=== PATIENT | male | born 1970 | race Two or more races ===

== ENCOUNTER 2019-12-08 17:25 | Emergency (ER) | payer OTHER ==
[~2019-12-08] VITALS: Ht 180.3 cm; Wt 90.0 kg
[2019-12-08] MEDS ORDERED: acetaminophen 325mg tablet PO ONE (19:55)
[2019-12-08] MEDS ORDERED: ketorolac trometh inj. 60 MG/2 ML VIAL IM ONE (19:55)
[2019-12-08 20:17] VITALS: BP 138/88
== END 2019-12-08 20:18 | disposition home or self-care (01) ==
LOC: ER 17:26
DX: K46.9 Unspecified abdominal hernia without obstruction or gangrene (principal)
CPT/HCPCS: 96372; 99283; J1885

== ENCOUNTER 2021-01-23 16:03 | Emergency (ER) | payer BC, OTHER ==
[~2021-01-23] VITALS: Ht 177.8 cm; Wt 100.0 kg
[2021-01-23] MEDS ORDERED: ibuprofen 200mg tablet PO ONE (20:55)
[2021-01-23] MEDS ORDERED: HYDROcodone/acetaminophen 10/325mg tab PO ONE (20:55)
[2021-01-23 22:01] VITALS: BP 143/89
== END 2021-01-23 22:03 | disposition home or self-care (01) ==
LOC: ER 16:03
DX: S06.0X0A Concussion without loss of consciousness, initial encounter (principal); Z95.0 Presence of cardiac pacemaker; W22.8XXA Striking against or struck by other objects, initial encounter; Y93.89 Activity, other specified; Y92.89 Other specified places as the place of occurrence of the external cause; Y99.9 Unspecified external cause status
CPT/HCPCS: 72040; 99283

== ENCOUNTER 2023-08-17 13:06 | Emergency (ER) | payer BC, OTHER ==
[~2023-08-17] VITALS: Ht 177.8 cm; Wt 82.0 kg
[2023-08-17 14:28] LABS: BASOPHILS # (AUTO) 0.1 X10'3 (0-0.2); BASOPHILS % (AUTO) 0.5 % (0-1); EOSINOPHILS # (AUTO) 0.1 X10'3 (0-0.9); EOSINOPHILS % (AUTO) 0.7 % (0-6); HEMATOCRIT 41.7 % (42.0-52.0); HEMOGLOBIN 13.9 g/dl (14.0-17.9); LYMPHOCYTES # (AUTO) 1.3 X10'3 (1.1-4.8); LYMPHOCYTES % (AUTO) 8.3 % (21-51); MEAN CORPUSCULAR HEMOGLOBIN 27.7 PG (27.0-31.0); MEAN CORPUSCULAR HGB CONC 33.3 g/dL (33.0-36.5); MEAN CORPUSCULAR VOLUME 83.2 FL (78-98); MEAN PLATELET VOLUME 9.7 FL (7.4-10.4); MONOCYTES # (AUTO) 1.3 X10'3 (0-0.9); MONOCYTES % (AUTO) 8.4 % (2-12); NEUTROPHILS % (AUTO) 82.1 % (42-75); PLATELET COUNT 185 X10'3 (140-440); RED BLOOD COUNT 5.01 X10'6 (4.70-6.10); WHITE BLOOD COUNT 15.9 X10'3 (4.5-11.0)
[2023-08-17 14:45] LABS: ALANINE AMINOTRANSFERASE 16 U/L (12-78); ALBUMIN 4.2 G/DL (3.4-5.0); ALBUMIN/GLOBULIN RATIO 1.2 (1.1-1.5); ALKALINE PHOSPHATASE 70 IU/L (46-116); ANION GAP 9 (8-16); ASPARTATE AMINO TRANSFERASE 10 U/L (10-37); BLOOD UREA NITROGEN 13 MG/DL (7-18); BUN/CREATININE RATIO 11.6 (10.0-20.0); CALCIUM 9.6 MG/DL (8.5-10.1); CHLORIDE 104 MMOL/L (99-107); CREATININE 1.12 MG/DL (0.60-1.10); GLUCOSE 129 MG/DL (70-104); LIPASE 24 U/L (16-77); POTASSIUM 4.1 MMOL/L (3.5-5.1); SODIUM 139 MMOL/L (135-145); TOTAL CARBON DIOXIDE 26.3 MMOL/L (24-32); TOTAL PROTEIN 7.6 G/DL (6.4-8.2); eCRCL 78 ML/MIN; eGFR 68 ML/MIN
[2023-08-17 15:35] LABS: CLARITY,URINE CLEAR (Clear); COLOR,URINE YELLOW (Yellow); GLUCOSE, URINE NEGATIVE (Neg); KETONES,URINE TRACE mg/dl (Neg); LEUKOCYTE ESTERASE ,URINE NEGATIVE (Neg); OCCULT BLOOD,URINE NEGATIVE (Neg); PROTEIN,URINE 30 mg/dl (Neg)
[2023-08-17 15:40] LABS: UA COLLECTION TYPE CLN CATCH MIDSTREAM
[2023-08-17] MEDS ORDERED: normal saline 1000ml 1,000 ML IV ONE (15:40)
[2023-08-17] MEDS ORDERED: iohexol 300mg/ml 100ml inj. ONE (15:40)
[2023-08-17 15:43] LABS: BILIRUBIN,URINE NEGATIVE (Neg); NITRITES, URINE NEGATIVE (Neg); WBC,URINE 0-4 /HPF (0-4)
[2023-08-17 15:44] LABS: BACTERIA,URINE NONE SEEN /HPF (Neg); MUCUS STRANDS MODERATE /LPF (Neg); RBC,URINE NONE SEEN /HPF (0-2); SQUAMOUS EPITHELIAL CELL,UR FEW /LPF (FEW)
[2023-08-17 16:12] VITALS: TEMP 99
[2023-08-17] MEDS ORDERED: piperacillin/tazo 4.5gm/100ml 100 ML IV ONE ×2 (17:45→18:00)
[2023-08-17] MEDS ORDERED: AMOX-580 PO (17:55)
[2023-08-17 19:20] VITALS: BP 94/65; PULSE 77; RESP 18; O2SAT 97
== END 2023-08-17 21:34 | disposition home or self-care (01) ==
LOC: ER 13:06
DX: K57.92 Diverticulitis of intestine, part unspecified, without perforation or abscess without bleeding (principal); R68.83 Chills (without fever); Z95.0 Presence of cardiac pacemaker; Z98.890 Other specified postprocedural states
CPT/HCPCS: 36415; 74177; 80053; 81001; 83690; 85025; 96365; 96366; 99285; J2543; J3490; J7030; Q9967; 96375

== ENCOUNTER 2024-02-09 18:53 | Emergency (ER) | payer BC, OTHER ==
[~2024-02-09] VITALS: Ht 177.8 cm; Wt 80.0 kg
[2024-02-09 18:56] VITALS: BP 132/86; PULSE 64; TEMP 98.6; O2SAT 98
[2024-02-09 20:52] LABS: BILIRUBIN,URINE NEGATIVE (Neg); CLARITY,URINE CLEAR (Clear); COLOR,URINE YELLOW (Yellow); GLUCOSE, URINE NEGATIVE (Neg); KETONES,URINE NEGATIVE (Neg); LEUKOCYTE ESTERASE ,URINE NEGATIVE (Neg); NITRITES, URINE NEGATIVE (Neg); OCCULT BLOOD,URINE NEGATIVE (Neg); PROTEIN,URINE NEGATIVE (Neg); UROBILINOGEN,URINE 0.2 E.U/dL (0.2-1.0)
[2024-02-09 20:54] LABS: UA COLLECTION TYPE CLN CATCH MIDSTREAM
[2024-02-09] MEDS ORDERED: ketorolac trometh inj. 60 MG/2 ML VIAL IM ONE (21:15)
[2024-02-09] MEDS ORDERED: HYDR-3965 PO (21:19)
[2024-02-09] MEDS ORDERED: IBUP-1986 PO (21:19)
[2024-02-09] MEDS ORDERED: METH-798 PO (21:19)
[2024-02-09 21:38] VITALS: RESP 16
[2024-02-09] MEDS: ketorolac tromethamine 15mg/ml inj. IM ONE (21:38)
== END 2024-02-09 22:07 | disposition home or self-care (01) ==
LOC: ER 18:54
DX: M54.50 Low back pain, unspecified (principal); Z95.0 Presence of cardiac pacemaker; Z72.89 Other problems related to lifestyle
CPT/HCPCS: 72100; 81003; 96372; 99284; J1885

== ENCOUNTER 2024-06-18 11:04 | Emergency (ER) | payer BC, OTHER ==
[~2024-06-18] VITALS: Ht 175.3 cm; Wt 75.0 kg
[~2024-06-18 11:04] MED LIST: IBUP-1986 PO; METH-798 PO
[2024-06-18 11:36] VITALS: TEMP 97
[2024-06-18] MEDS: ketorolac trometh 30MG/ML vial 30 MG/ML VIAL IM ONE (13:18)
[2024-06-18] MEDS: HYDROcodone/acetaminophen 10/325mg tab PO ONE (13:19)
[2024-06-18 13:31] VITALS: BP 115/71; PULSE 59; RESP 16; O2SAT 99
== END 2024-06-18 13:32 | disposition home or self-care (01) ==
LOC: ER 11:05
DX: M25.561 Pain in right knee (principal); Z79.1 Long term (current) use of non-steroidal anti-inflammatories (NSAID); Z79.899 Other long term (current) drug therapy
CPT/HCPCS: 29530; 73564; 96372; 99283; J1885; 29505

== ENCOUNTER 2024-10-20 05:57 | Observation (INO) | payer BC, OTHER ==
[2024-10-16 15:42] LABS: BASOPHILS # (AUTO) 0.1 X10'3 (0-0.2); EOSINOPHILS # (AUTO) 0.2 X10'3 (0-0.9); EOSINOPHILS % (AUTO) 3.6 % (0-6); LYMPHOCYTES # (AUTO) 1.7 X10'3 (1.1-4.8); LYMPHOCYTES % (AUTO) 24.9 % (21-51); MEAN CORPUSCULAR HEMOGLOBIN 28.6 PG (27.0-31.0); MEAN CORPUSCULAR HGB CONC 34.1 g/dL (33.0-36.5); MEAN CORPUSCULAR VOLUME 83.9 FL (78-98); MEAN PLATELET VOLUME 8.9 FL (7.4-10.4); MONOCYTES # (AUTO) 0.7 X10'3 (0-0.9); MONOCYTES % (AUTO) 9.9 % (2-12); NEUTROPHILS # (AUTO) 4.1 X10'3 (1.8-7.7); NEUTROPHILS % (AUTO) 60.6 % (42-75); PRE OP HEMATOCRIT 43.8 % (42.0-52.0); PRE OP HEMOGLOBIN 14.9 g/dL (14.0-17.9); PRE OP PLATELET COUNT 210 X10'3 (140-440); PRE OP WHITE BLOOD COUNT 6.7 10'3 (4.8-10.8); RED BLOOD COUNT 5.22 X10'6 (4.70-6.10); RED CELL DISTRIBUTION WIDTH 13.6 % (11.5-14.5)
[2024-10-16 15:53] LABS: ALBUMIN 4.3 G/DL (3.4-5.0); ALBUMIN/GLOBULIN RATIO 1.3 (1.1-1.5); ALKALINE PHOSPHATASE 87 IU/L (46-116); BLOOD UREA NITROGEN 16 MG/DL (7-18); BUN/CREATININE RATIO 14.2 (10.0-20.0); CHLORIDE 107 MMOL/L (99-107); CREATININE 1.13 MG/DL (0.60-1.10); PRE OP ALT 19 U/L (30-65); PRE OP ANION GAP 9 (8-16); PRE OP AST 12 U/L (10-37); PRE OP BILIRUB, TOTAL 0.6 MG/DL (0.0-1.0); PRE OP GLUCOSE 101 MG/DL (70-104); PRE OP POTASSIUM 4.2 MMOL/L (3.4-5.1); PRE OP SODIUM 143 MMOL/L (135-145); TOTAL CARBON DIOXIDE 26.9 MMOL/L (24-32); TOTAL PROTEIN 7.6 G/DL (6.4-8.2); eGFR 67 ML/MIN
[~2024-10-20] VITALS: Ht 177.8 cm; Wt 73.9 kg
[2024-10-20] VITALS (23 sets, daily range): BP systolic 102–130; BP diastolic 66–82; PULSE 50–73; RESP 9–16; TEMP 97–98.5; O2SAT 96–100
[2024-10-20] MEDS: DOCUMENT DATE & TIME OF BETA-BLOCKER PO ONE (05:30)
[~2024-10-20 05:57] MED LIST changes: +DILT-35 PO; -IBUP-1986 PO; +MESA1.2T3 PO; -METH-798 PO; +OMEP20CA16 PO; +SERT-432 PO; +SOTA120T PO
[2024-10-20] MEDS: ceFAZolin 2gm in dextrose, iso 50 ML IV ONE (06:39)
[2024-10-20] MEDS: ringers solution, lacted 1,000 ML IV SCH ×2 (06:40→10:05)
[2024-10-20] MEDS: VANCOMYCIN/H2O 1.5g/300mL PB 300 ML IV ONE (06:40)
[2024-10-20] MEDS: famotidine 20mg tablet PO ONE (06:41)
[2024-10-20] MEDS: tranexamic acid 650mg tablet PO ONE (06:42)
[2024-10-20] MEDS ORDERED: mineral oil 10ml sterile, topical TP ONE (06:48)
[2024-10-20] MEDS ORDERED: BUPIVACAINE/MELOXICAM 14 ML VIAL IL ONE (06:49)
[2024-10-20] MEDS ORDERED: ROPIVAcaine 0.5% (5mg/ml) 30ml vial ONE ×2 (06:49→08:49)
[2024-10-20] MEDS ORDERED: vancomycin 1,000mg inj ONE (07:35)
[2024-10-20] MEDS ORDERED: BUPIVAcaine/dex-water/PF 7.5 mg/ml 2ml ampul ONE (08:07)
[2024-10-20] MEDS ORDERED: fentaNYL/PF 50MCG/1 ML 2ML syringe ONE (08:13)
[2024-10-20] MEDS ORDERED: MIDAZolam 1 MG/ML 5ML VIAL ONE (08:13)
[2024-10-20] MEDS ORDERED: propofol inj 20 ML IV ONE (08:49)
[2024-10-20] MEDS ORDERED: LIDOcaine 1%/PF 5ML 10 MG/ML VIAL ONE (08:49)
[2024-10-20] MEDS ORDERED: dexamethasone sod phosphate 4mg/ml inj. ONE (08:50)
[2024-10-20] MEDS: BUPIVACAINE/MELOXICAM 14 ML VIAL IL ONE (09:10)
[2024-10-20] MEDS ORDERED: morphine 4 MG/ML inj SYRINge IV PRN (10:05)
[2024-10-20] MEDS ORDERED: proCHLORperazine 10 MG/2 ml inj IV PRN (10:05)
[2024-10-20] MEDS ORDERED: enalaprilat 1.25mg/ml 2ml vial IV PRN (10:05)
[2024-10-20] MEDS ORDERED: ondansetron/PF 4mg/2ml inj IV PRN ×2 (10:05→10:25)
[2024-10-20] MEDS ORDERED: labetalol 20mg/4ml (5mg/ml) syringe IV PRN (10:05)
[2024-10-20] MEDS ORDERED: meperidine/PF 25mg/ml syringe IV PRN ×3 (10:05)
[2024-10-20] MEDS ORDERED: morphine 2 MG/ML inj. syringe IV PRN (10:05)
[2024-10-20] MEDS ORDERED: diphenhydrAMINE 25mg capsule PO PRN ×2 (10:25)
[2024-10-20] MEDS ORDERED: acetaminophen 325mg tablet PO PRN (10:25)
[2024-10-20] MEDS: potassium cl 20mEq in 1/2 NS 1,000 ML IV SCH (10:25)
[2024-10-20] MEDS ORDERED: naloxone 0.4 mg/ml inj IV PRN (10:25)
[2024-10-20] MEDS ORDERED: HYDROmorphone 1 mg/ml syringe IV PRN (10:25)
[2024-10-20] MEDS ORDERED: HYDROmorphone inj. 0.5 MG/0.5 ML DISP.SYRIN IV PRN (10:25)
[2024-10-20] MEDS ORDERED: magnesium hydroxide 30ml (MOM) UD suspension PO PRN (10:25)
[2024-10-20] MEDS ORDERED: bisacodyl 10mg suppository rectal RC PRN (10:25)
[2024-10-20] MEDS: oxyCODONE IR 5mg (immed. release) tablet PO PRN ×2 (12:51→19:45)
[2024-10-20] MEDS: acetaminophen 325mg tablet PO SCH (12:52)
[2024-10-20] MEDS: ceFAZolin/D5W- 1GM premix 50 ML IV SCH (17:40)
[2024-10-20] MEDS: vancomycin/NS 1 GM ADD-VANTAGE 250 ML IV SCH (19:42)
[2024-10-20] MEDS: sotalol HCl 40mg (1/2 tablet) PO SCH (19:43)
[2024-10-20] MEDS: sertraline 25mg tablet PO SCH (19:43)
[2024-10-20] MEDS: sennosides 8.6mg tablet PO SCH (19:44)
[2024-10-21 02:00] VITALS: BP 108/69; PULSE 75; RESP 13; TEMP 98; O2SAT 98
[2024-10-21 06:00] VITALS: BP 125/76; PULSE 65; RESP 13; TEMP 97.9; O2SAT 96
[2024-10-21 06:08] LABS: BASOPHILS % (AUTO) 0.2 % (0-1); EOSINOPHILS % (AUTO) 0.2 % (0-6); LYMPHOCYTES # (AUTO) 1.2 X10'3 (1.1-4.8); LYMPHOCYTES % (AUTO) 7.2 % (21-51); MEAN CORPUSCULAR HEMOGLOBIN 28.5 PG (27.0-31.0); MEAN CORPUSCULAR HGB CONC 34.2 g/dL (33.0-36.5); MEAN CORPUSCULAR VOLUME 83.3 FL (78-98); MEAN PLATELET VOLUME 9.3 FL (7.4-10.4); MONOCYTES # (AUTO) 1.7 X10'3 (0-0.9); MONOCYTES % (AUTO) 10.1 % (2-12); NEUTROPHILS # (AUTO) 13.5 X10'3 (1.8-7.7); NEUTROPHILS % (AUTO) 82.3 % (42-75); PLATELET COUNT 155 X10'3 (140-440); RED CELL DISTRIBUTION WIDTH 13.4 % (11.5-14.5); WHITE BLOOD COUNT 16.4 X10'3 (4.5-11.0)
[2024-10-21 06:20] LABS: ANION GAP 8 (8-16); CHLORIDE 106 MMOL/L (99-107); POTASSIUM 4.2 MMOL/L (3.5-5.1); SODIUM 138 MMOL/L (135-145); TOTAL CARBON DIOXIDE 23.6 MMOL/L (24-32)
[2024-10-21 07:00] VITALS: RESP 14; O2SAT 98
[2024-10-21] MEDS: aspirin 325mg tablet PO SCH (08:02)
[2024-10-21] MEDS: diltiazem CD 120mg capsule (once-daily) PO SCH (08:03)
[2024-10-21] MEDS: mesalamine 1.2gm ER tablet PO SCH (08:03)
[2024-10-21] MEDS: pantoprazole 40mg Tablet.DR PO SCH (08:03)
[2024-10-21 10:00] VITALS: BP 118/68; PULSE 68; RESP 14; TEMP 98.7; O2SAT 98
[2024-10-21 14:45] VITALS: RESP 14
[2024-10-21] MEDS ORDERED: celeCOXIB 100mg capsule PO SCH (20:00)
[2024-10-22] MEDS ORDERED: acetaminophen 325mg tablet PO PRN (18:20)
== END 2024-10-21 16:00 | disposition home or self-care (01) ==
LOC: PAS 05:57 → ORTHO 4S 12:24 → INTOOBSV 12:24
PROVIDERS: ADMIT Orthopaedic Surgery; ATTEND Orthopaedic Surgery
DX: M17.31 Unilateral post-traumatic osteoarthritis, right knee (principal); R42 Dizziness and giddiness; I10 Essential (primary) hypertension; F32.A Depression, unspecified; K21.9 Gastro-esophageal reflux disease without esophagitis; I25.2 Old myocardial infarction; Z87.891 Personal history of nicotine dependence; Z79.899 Other long term (current) drug therapy
CPT/HCPCS: 20985; 27447; 36415; 80051; 80053; 82948; 85025; 87081; 93005; 96361; 96365; 96366; 96367; 97161; 97530; C1776; G0378; J0690; J1100; J2250; J2704; J2795; J3010; J3370; J3372; J3480; J3490; J7120; A4215; A6449; A7000; C1758; J7040

== ENCOUNTER 2025-04-29 00:29 | Emergency (ER) | payer BC, OTHER ==
[~2025-04-29] VITALS: Ht 177.8 cm; Wt 73.6 kg
[2025-04-29 00:49] LABS: MEAN PLATELET VOLUME 8.7 FL (7.4-10.4); RED CELL DISTRIBUTION WIDTH 14.3 % (11.5-14.5)
[2025-04-29 01:15] LABS: CREATININE 0.95 MG/DL (0.60-1.10); TOTAL CARBON DIOXIDE 23.2 MMOL/L (24-32); eCRCL 91 ML/MIN; eGFR 82 ML/MIN
--- NOTE | 2025-04-29 01:23 | Physician Documentation ---
History of Present Illness ~ Chief Complaint: Abdominal Pain Stated Complaint: ABD PAIN Time Seen by MD: 01:22 Primary Medical Doctor: [facility] HPI Patient presents to the emergency room for evaluation right lower quadrant abdominal pain. Patient has history of diverticulitis and feels this is similar. He still has a appendix. No fevers. He has had nothing for pain in his declining pain medication at this time Medication Reconciliation Allergies: Coded Allergies: No Known Allergies (Unverified , 04/29/25) Scheduled Diltiazem HCl (Diltiazem 24Hr ER), 1 CAP PO QAM, (Reported) Mesalamine (Mesalamine), 4 TAB PO QAM, (Reported) Omeprazole (Omeprazole), 1 CAP PO QAM, (Reported) Sertraline HCl (Sertraline HCl), 1 TAB PO HS, (Reported) Sotalol Hcl (Betapace), 1 TAB PO BID, (Reported) Past Medical History Past Medical History: Arrhythmia Past Surgical History: pacemaker Alcohol Use: Rarely Drug Use: none Lives with: Spouse, Family Lives In: Home Review of Systems ROS All review of systems negative except as per HPI Physical Exam Vital Signs: Temperature: 98.6, Source: Oral, Heart Rate: 75, Respiratory Rate: 16, BP: 140/83, Pulse Oximetry: 98, Weight: 73.600 Oxygen Flow Rate: 0 Physical Exam General: Patient is awake, alert, oriented x4 in no acute distress Head: Normocephalic and atraumatic. Eyes: Conjunctival normal. EOMI. PERRL. ENT: Mucous membranes moist. Neck: Supple, trachea is midline. Chest: Clear to auscultation bilaterally without rales, rhonchi, or wheezes. There is no accessory muscle use or retractions. Cardiac: RRR without murmurs, gallops, or rubs. Abd: Soft, nondistended, positive tenderness to palpation to right lower quadrant Progress Results/Orders Results/Orders Orders - NEGRITO GRAFF MD Ct Abdomen Pelvis (04/29/25 01:30) Completed Orders - NEGRITO GRAFF MD Urinalysis, Cult If Indicated (04/29/25 00:36) Cbc/Diff (04/29/25 00:36) BMP (04/29/25 00:36) Lipase (04/29/25 00:36) CMP (04/29/25 00:36) Ct Abdomen Pelvis (04/29/25 01:30) Ketorolac Trometh 15mg/Ml Vial (Toradol (04/29/25 02:45) Vital Signs 04/29/25 04/29/25 00:34 02:01 Temp 98.6 Pulse 75 Resp 16 10 B/P (MAP) 140/83 Pulse Ox 98 O2 Flow Rate 0 Laboratory Tests Test 04/29/25 00:41 04/29/25 02:00 White Blood Count 7.5 Red Blood Count 4.90 Hemoglobin 13.6 L Hematocrit 39.5 L Mean Corpuscular Volume 80.6 Mean Corpuscular Hemoglobin 27.8 Mean Corpuscular Hemoglobin Concent 34.5 Red Cell Distribution Width 14.3 Platelet Count 212 Mean Platelet Volume 8.7 Neutrophils (%) (Auto) 55.5 Lymphocytes (%) (Auto) 32.4 Monocytes (%) (Auto) 9.3 Eosinophils (%) (Auto) 1.8 Basophils (%) (Auto) 1.0 Neutrophils # (Auto) 4.1 Lymphocytes # (Auto) 2.4 Monocytes # (Auto) 0.7 Eosinophils # (Auto) 0.1 Basophils # (Auto) 0.1 CBC Comment Sodium Level 136 Potassium Level 3.5 Chloride Level 103 Carbon Dioxide Level 23.2 L Anion Gap 10 Blood Urea Nitrogen 17 Creatinine 0.95 Estimated GFR/1.73 m2 82 BUN/Creatinine Ratio 17.9 Glucose Level 99 Calcium Level 8.7 Total Bilirubin 0.5 Aspartate Amino Transf (AST/SGOT) 22 Alanine Aminotransferase (ALT/SGPT) 26 Alkaline Phosphatase 90 Total Protein 7.7 Albumin 4.4 Globulin 3.3 Albumin/Globulin Ratio 1.3 Lipase 61 Chemistry Comments Urine Specimen Description Non-specified Urine Color Yellow Urine Clarity Clear Urine pH 6.0 Urine Specific [place] 1.020 Urine Protein Negative Urine Glucose (UA) Negative Urine Ketones 15 H Urine Occult Blood Negative Urine Nitrite Negative Urine Bilirubin Negative Urine Urobilinogen 1.0 Urine Leukocyte Esterase Negative Urine Culture Indicated Not ind Volume Urine Centrifuged 10 ml Urine Comment Medical Decision Making Findings Patient presented to the emergency room with right lower quadrant tenderness as per HPI. Differentials include but are not limited to appendicitis, diverticulitis, kidney stone, small-bowel obstruction therefore emergent labs and imaging indicated. Labs are reassuring as his imaging. Upon reviewing patient's CT scan I do see significant amount of fecal matter in his area of concern I do believe his pain is related to this. We will treat him for constipation with ER precautions discussed. Need to drink more water also discussed. Departure Disposition: HOME / SELF CARE / HOMELESS Impression: Primary Impression: Abdominal pain Condition: Stable Discharge Instructions: Abdominal Pain (Nonspecific) Additional Instructions: We will treat him empirically for constipation. Double your hydration efforts and titrate up constipation medications until having regular bowel movements. Return for fevers or worsening in his symptoms Referrals: NO PRIMARY CARE PROVIDER (PCP) Prescriptions Bisacodyl (Dulcolax) 5 Mg Tablet.dr 4 TAB PO ONCE for constipation for 1 Day, #4 TAB 0 Refills Prov: NEGRITO GRAFF MD 04/29/25 Polyethylene Glycol 3350 (Miralax) 17 Gram/Dose Powder 17 GM PO DAILY for constipation, #255 GM 0 Refills Increase by 2-3 scoops daily until having regular bowel movements. Avoid if diarrhea. Must drink with plenty of water Prov: NEGRITO GRAFF MD 04/29/25 Education Educated: Patient Educated regarding: diagnosis, treatment, need for follow up Signature Scribe Signature: No scribe Attestation: The note accurately reflects work and decisions made by me.Nergito Graff MD 04/29/25 02:53 NEGRITO GRAFF MD Apr 29, 2025 01:23
[2025-04-29 02:35] LABS: LEUKOCYTE ESTERASE ,URINE NEGATIVE (Neg); NITRITES, URINE NEGATIVE (Neg); OCCULT BLOOD,URINE NEGATIVE (Neg); UA COLLECTION TYPE NON-SPECIFIED
--- NOTE | 2025-04-29 02:44 | RADIOLOGY REPORT ---
Exam: CT CT ABDOMEN PELVIS History: RLQ pain Comparison Study: CT CT ABDOMEN PELVIS on DOS: 08/17/23 Technique: Multidetector spiral CT of the abdomen was performed from lung bases to pubic symphysis. I maging was performed without IV contrast. Axial, coronal and sagittal multiplanar reformats were obta ined from the axial data set by the technologist. Radiation Dose : 1. Abdomen/Pelvis: CTDIvol 11.49 mGy, DLP 593.17 mGy*cm. Findings: Evaluation of solid organs is limited due to lack of intravenous contrast use. Lung Bases: No acute or significant lung base finding. Normal heart size. No pleural or pericardial effusion. Cardiac pacing leads. Liver: The liver is normal in size. No focal lesions. Gallbladder and Biliary Tree: Unremarkable Spleen: Unremarkable Pancreas: The pancreas is grossly normal in appearance. Adrenal Glands: Unremarkable Kidneys: Punctate nonobstructing left inferior pole pelvocaliceal calculus. Bilateral renal cortical cysts measure 4.0 cm within the right superior pole and 2.0 cm within the left inferior pole. Kidney s are otherwise grossly normal without evidence of hydronephrosis. Bladder: Grossly unremarkable for degree of distention. Bowel: The stomach is grossly normal in appearance. Small bowel and colon are normal in caliber and d istribution. The appendix is not visualized; however, no secondary findings of acute appendicitis daniela ntified. Ascites: Absent Lymphadenopathy: No mesenteric, retroperitoneal or periportal lymphadenopathy. Abdominal Wall and Mesentery: Unremarkable. Vasculature: The visualized abdominal aorta is normal in size and caliber. Evaluation of abdominal a nd pelvic vessels is limited due to lack of intravenous contrast. Pelvic Organs: The prostate is enlarged, measuring 5.2 cm transverse. Musculoskeletal: No aggressive focal bony lesions, acute fractures or dislocation. IMPRESSION: 1. No acute abdominal or pelvic findings. 2. Nonobstructive left nephrolithiasis. 3. Prostatomegaly. Radiation optimization: All CT scans at this facility use at least one of these dose optimization abbie hniques: automated exposure control mA and/or kV adjustment per patient size (includes targeted exam s where dose is matched to clinical indication) or iterative reconstruction.
[2025-04-29] MEDS ORDERED: BISA-78 PO (02:53)
[2025-04-29] MEDS ORDERED: POLY119P2 PO (02:53)
[2025-04-29] MEDS: ketorolac trometh 15mg/ml vial 15 MG/ML ML IM ONE (02:54)
[2025-04-29] MEDS: bisacodyl 5mg tablet.DR PO ONE (03:00)
[2025-04-29 03:05] VITALS: BP 147/93; PULSE 64; RESP 10; TEMP 98.6; O2SAT 99
== END 2025-04-29 03:06 | disposition home or self-care (01) ==
LOC: ER 00:29
DX: R10.31 Right lower quadrant pain (principal); Z95.0 Presence of cardiac pacemaker; Z79.899 Other long term (current) drug therapy
CPT/HCPCS: 36415; 74176; 80053; 81003; 83690; 85025; 96372; 99285; J1885

== ENCOUNTER 2025-05-18 21:03 | Emergency (ER) | payer OTHER ==
[~2025-05-18] VITALS: Ht 177.8 cm; Wt 73.0 kg
[~2025-05-18 21:03] MED LIST changes: +BISA-78 PO; +POLY119P2 PO
[2025-05-18 21:49] LABS: MEAN PLATELET VOLUME 8.8 FL (7.4-10.4); RED CELL DISTRIBUTION WIDTH 14.4 % (11.5-14.5)
[2025-05-18 22:00] LABS: CREATININE 1.04 MG/DL (0.60-1.10); TOTAL CARBON DIOXIDE 27.1 MMOL/L (24-32); eCRCL 83 ML/MIN; eGFR 74 ML/MIN
[2025-05-19 01:01] LABS: LEUKOCYTE ESTERASE ,URINE NEGATIVE (Neg); NITRITES, URINE NEGATIVE (Neg); OCCULT BLOOD,URINE NEGATIVE (Neg)
[2025-05-19 01:03] LABS: UA COLLECTION TYPE NON-SPECIFIED
[2025-05-19 03:05] VITALS: RESP 17
--- NOTE | 2025-05-19 03:06 | Physician Documentation ---
History of Present Illness Chief Complaint: Abdominal Pain Stated Complaint: SIDE ABD PAIN Time Seen by MD: 03:03 OK to notify your PCP?: Yes Primary Medical Doctor: [facility] Source: patient, RN/, RN notes reviewed, old records Mode of Arrival: POV Exam Limitations: no limitations HPI 54 year old male presents to the emergency department for complaints of right sided abdominal pain. He states he was seen on 05/09/2025 and told he was constipated. Today he began to have a pain in his right lower abdominal quadrant that he rates a 9/10. He states his pain is different from his last visit. He also endorses bowel movements 2-3 times a day. He denies nausea, vomiting, fever, chills, or sick contact. Modifiy Factors: Worsens with: lying down Medication Reconciliation Allergies: Coded Allergies: No Known Allergies (Unverified , 05/18/25) Scheduled Bisacodyl (Dulcolax), 4 TAB PO ONCE Diltiazem HCl (Diltiazem 24Hr ER), 1 CAP PO QAM, (Reported) Mesalamine (Mesalamine), 4 TAB PO QAM, (Reported) Omeprazole (Omeprazole), 1 CAP PO QAM, (Reported) Polyethylene Glycol 3350 (Miralax), 17 GM PO DAILY Sertraline HCl (Sertraline HCl), 1 TAB PO HS, (Reported) Sotalol Hcl (Betapace), 1 TAB PO BID, (Reported) Past Medical History Past Medical History: Arrhythmia Past Surgical History: pacemaker Alcohol Use: Rarely Drug Use: none Lives with: Spouse, Family Lives In: Home Review of Systems All Other Systems at this time: Reviewed and Negative ROS As stated above in the HPI, otherwise all systems are reviewed and negative. Physical Exam Vital Signs: RN Vital Signs have been reviewed: Yes, Temperature: 98.5, Source: Temporal, Heart Rate: 67, Respiratory Rate: 15, BP: 120/81, Pulse Oximetry: 100, Weight: 73.000 Oxygen Flow Rate: 0 Pulse Oximetry Reflects: adequate oxygenation Physical Exam General: The patient is well developed, well nourished, nontoxic appearing and is in no acute distress. Skin: [place], warm and dry with no rashes. HEENT: Head was normocephalic and atraumatic. Eyes - pupils equal, round, reactive to light and accommodation. Extraocular movements were intact. Conjunctivae were nonicteric. Ears - bilateral tympanic membranes were normal. The mouth and oropharynx were clear with moist mucous membranes. There were no pharyngeal exudates or erythema. Neck: Supple and nontender. There was no jugular venous distention, lymphad enopathy, thyromegaly or masses. Chest: Clear to auscultation bilaterally without wheezes, rales or rhonchi. No accessory muscle use. No dullness to percussion. Heart: Rate regular and rhythmic. S1, S2. No murmurs. Palpation of the chest wall was normal. No rubs or thrills. Abdomen: Soft, nontender and nondistended. hyperactive bowel sounds. No guarding or rebound. No hepatosplenomegaly or palpable masses. Extremities: No cyanosis, clubbing or edema. The patient moves all extremities. Pulses were equal and symmetric. Neurologic: Cranial nerves II-XII were intact. Sensation was intact to light touch throughout. Motor strength was 5/5 in all four extremities. Deep tendon reflexes were intact in both upper and lower extremities. Psychologic: The patient was oriented to person, place and time. The patient demonstrated appropriate judgement and insight. Progress Results/Orders Reviewed/noted all lab results: Yes Results/Orders Completed Orders - KOSTAS MOE MD Urinalysis, Cult If Indicated (05/18/25 21:18) Cbc/Diff (05/18/25 21:18) BMP (05/18/25 21:18) Lipase (05/18/25 21:18) CMP (05/18/25 21:18) Vital Signs 05/18/25 05/19/25 05/19/25 21:13 00:25 00:25 Temp 98.5 98.5 Pulse 70 67 Resp 16 15 15 B/P (MAP) 132/81 120/81 (94) Pulse Ox 98 100 O2 Flow Rate 0 0 Laboratory Tests Test 05/18/25 21:38 05/19/25 00:32 White Blood Count 6.9 Red Blood Count 4.93 Hemoglobin 13.9 L Hematocrit 39.9 L Mean Corpuscular Volume 80.8 Mean Corpuscular Hemoglobin 28.2 Mean Corpuscular Hemoglobin Concent 34.9 Red Cell Distribution Width 14.4 Platelet Count 193 Mean Platelet Volume 8.8 Neutrophils (%) (Auto) 61.6 Lymphocytes (%) (Auto) 26.3 Monocytes (%) (Auto) 9.2 Eosinophils (%) (Auto) 1.8 Basophils (%) (Auto) 1.1 H Neutrophils # (Auto) 4.2 Lymphocytes # (Auto) 1.8 Monocytes # (Auto) 0.6 Eosinophils # (Auto) 0.1 Basophils # (Auto) 0.1 CBC Comment Sodium Level 139 Potassium Level 3.9 Chloride Level 107 Carbon Dioxide Level 27.1 Anion Gap 5 L Blood Urea Nitrogen 17 Creatinine 1.04 Estimated GFR/1.73 m2 74 BUN/Creatinine Ratio 16.3 Glucose Level 99 Calcium Level 8.5 Total Bilirubin 0.4 Aspartate Amino Transf (AST/SGOT) 19 Alanine Aminotransferase (ALT/SGPT) 25 Alkaline Phosphatase 101 Total Protein 7.5 Albumin 4.4 Globulin 3.1 Albumin/Globulin Ratio 1.4 Lipase 52 Chemistry Comments Urine Specimen Description Non-specified Urine Color Yellow Urine Clarity Clear Urine pH 5.5 Urine Specific [place] >=1.030 Urine Protein Negative Urine Glucose (UA) Negative Urine Ketones Trace H Urine Occult Blood Negative Urine Nitrite Negative Urine Bilirubin Negative Urine Urobilinogen 0.2 Urine Leukocyte Esterase Negative Urine Culture Indicated Not ind Volume Urine Centrifuged 10 ml Urine Comment Re-Evaluation Re-Evaluation : Re-Evaluation: Improved Progress Patient was seen and examined. Patient is given reassurance. Patient was complaining of some abdominal pain. He received some fluid boluses as well as lactulose for constipation. Patient also received Dulcolax suppositories. For pain patient received pain medications and some medications to help sleep. Otherwise patient was doing much better and discharged home he has a history of constipation. However his laboratory work was all reassuring. Patient's CBC WBC is within normal limits 6.9 hemoglobin hematocrit 13 and 39. No left shift. Chemistry within normal limits LFTs within normal limits lipase within normal limits as well as a normal urinalysis. Continuous bottle hop interpretation shows normal sinus rhythm heart rate 70s, no ectopy, normal, my interpretation. Pulse oximetry monitor interpretation shows normal oxygenation 98% room air, normal, my interpretation. EKG/XRAY/CT/US/VASC/MRI Abdominal X-Ray : Additional Comment Exam: DI ABDOMEN,SINGLE VIEW(KUB) Indication: pain Comparison: CT CT ABDOMEN PELVIS on DOS: 04/29/25, CT CT ABDOMEN PELVIS on DOS: 08/17/23 Technique: 2 radiographic views of the abdomen. Findings: Nonobstructive bowel-gas pattern. No large stool burden. No acute finding of the lower chest or osseous structures. Impression: 1. Nonobstructive bowel-gas pattern. Electronically Signed by:JAMEY GIRALDO MD Date & Time: 05/19/25 0337 Medical Decision Making Differential Dx:Considerations: Include: Cholangitis, Cholelithasis, Constipation, Diverticular disease, Esophagitis, Gastritis/PUD, Gastroenteritis, GI hemorrhage, Hernia, Hepatitis, Inflammatory BD, Ischemic bowel, Pancreatitis, Urinary obstruction, Urinary tract infection, Urolithiasis, Other Departure Time of Disposition: 04:29 Disposition: 01 HOME / SELF CARE / HOMELESS Impression: Primary Impression: Abdominal pain Qualified Codes: R10.84 - Generalized abdominal pain Additional Impressions: Constipation Qualified Codes: K59.00 - Constipation, unspecified Pilonidal cyst Discharge Instructions: Constipation, Adult, [id number] Referrals: NO PRIMARY CARE PROVIDER (PCP) Education Educated: Patient Educated regarding: diagnosis, treatment, prognosis, need for follow up Signature Scribe Signature: Scribed for Kostas Moe MD by Jessica Florence . 05/19/25 03:19 Attestation: The note accurately reflects work and decisions made by me.Kostas Moe MD 05/19/25 03:06 KOSTAS MOE MD May 19, 2025 03:06 JESSICA HURTADO May 19, 2025 03:19
[2025-05-19] MEDS: normal saline 1000ML IV soln IVB ONE (03:31)
--- NOTE | 2025-05-19 03:39 | RADIOLOGY REPORT ---
Exam: DI ABDOMEN,SINGLE VIEW(KUB) Indication: pain Comparison: CT CT ABDOMEN PELVIS on DOS: 04/29/25, CT CT ABDOMEN PELVIS on DOS: 08/17/23 Technique: 2 radiographic views of the abdomen. Findings: Nonobstructive bowel-gas pattern. No large stool burden. No acute finding of the lower chest or osseo us structures. Impression: 1. Nonobstructive bowel-gas pattern.
[2025-05-19] MEDS: lactulose 20gm/30ml cup PO ONE (04:02)
[2025-05-19] MEDS: ondansetron 4mg rapidly disintigrating tab PO ONE (04:03)
[2025-05-19] MEDS: HYDROcodone/acetaminophen 10/325mg tab PO ONE (04:03)
[2025-05-19] MEDS: bisacodyl 10mg suppository rectal RC STA (04:57)
[2025-05-19 05:01] VITALS: BP 125/77; PULSE 63; TEMP 98.5; O2SAT 100
== END 2025-05-19 05:02 | disposition home or self-care (01) ==
LOC: ER 21:04
DX: K59.00 Constipation, unspecified (principal); Z95.0 Presence of cardiac pacemaker
CPT/HCPCS: 36415; 74018; 80053; 81003; 83690; 85025; 96360; 99284; J7030

== ENCOUNTER 2025-06-07 13:34 | Emergency (ER) | payer OTHER ==
[~2025-06-07] VITALS: Ht 177.8 cm; Wt 72.7 kg
[2025-06-07 14:00] VITALS: TEMP 98.5
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
[2025-06-07 15:28] VITALS: BP 127/87; PULSE 69; O2SAT 99
[2025-06-07] MEDS: ketorolac trometh 15mg/ml vial 15 MG/ML ML IM ONE (15:50)
[2025-06-07 16:03] VITALS: RESP 18
== END 2025-06-07 16:23 | disposition home or self-care (01) ==
LOC: ER 13:35
DX: M25.561 Pain in right knee (principal); R07.81 Pleurodynia; M25.571 Pain in right ankle and joints of right foot; Z79.899 Other long term (current) drug therapy; Z95.0 Presence of cardiac pacemaker
CPT/HCPCS: 71111; 73560; 73610; 96372; 99284; J1885